=== PATIENT | female | born 1985 | race Caucasian/White ===

== ENCOUNTER 2019-02-16 14:35 | Emergency (ER) | payer MEDICAID ==
[~2019-02-16] VITALS: Ht 157.5 cm; Wt 50.0 kg
[~2019-02-16 14:35] MED LIST: IBUP-1984 PO; NO HOME MEDS
[2019-02-16 14:54] VITALS: BP 114/68
[2019-02-16] MEDS ORDERED: PENI250T2 PO (16:18)
[2019-02-16] MEDS ORDERED: PERM60CR19 TP (16:18)
== END 2019-02-16 15:22 | disposition home or self-care (01) ==
LOC: ER 14:36
DX: K04.7 Periapical abscess without sinus (principal); B86 Scabies; G89.29 Other chronic pain; Z56.0 Unemployment, unspecified; Z88.1 Allergy status to other antibiotic agents; Z88.8 Allergy status to other drugs, medicaments and biological substances; Z79.899 Other long term (current) drug therapy
CPT/HCPCS: 99283